=== PATIENT | female | born 1980 | race Hispanic/Latino ===

== ENCOUNTER 2019-08-16 09:43 | Day surgery (SDC) | payer OTHER ==
[~2019-08-16] VITALS: Ht 165.1 cm; Wt 146.1 kg
[~2019-08-16 09:43] MED LIST: SODIUM CHLORIDE 0.9% 1000ML 1,000 ML IV ONE
[2019-08-16 10:57] VITALS: BP 151/71
[2019-08-16] MEDS ORDERED: PROPOFOL 10 MG/ML 20ML VIAL IV ONE (11:22)
[2019-08-16] MEDS ORDERED: BUDE10.2 IH (11:37)
[2019-08-16] MEDS ORDERED: CHOL200026 PO (11:37)
[2019-08-16] MEDS ORDERED: DICY20TA11 PO (11:37)
[2019-08-16] MEDS ORDERED: NORG1TAB14 PO (11:37)
[2019-08-16] MEDS ORDERED: METF-444 PO (11:37)
[2019-08-16] MEDS ORDERED: IRBE300T19 PO (11:37)
[2019-08-16] MEDS ORDERED: CETI10TA57 PO (11:37)
[2019-08-16] MEDS ORDERED: AMLO10TA7 PO (11:37)
[2019-08-16] MEDS ORDERED: MONT10TA24 PO (11:37)
[2019-08-16 12:40] VITALS: BP 112/54
[2019-08-16 12:48] VITALS: BP 150/89
[2019-08-16 12:50] VITALS: BP 128/76
== END 2019-08-16 13:16 | disposition home or self-care (01) ==
LOC: ENDO 09:43 → DAH 09:43 → ENDO 13:16
PROVIDERS: ATTEND Internal Medicine Gastroenterology
DX: R93.5 Abnormal findings on diagnostic imaging of other abdominal regions, including retroperitoneum (principal); K29.00 Acute gastritis without bleeding; I10 Essential (primary) hypertension; K31.89 Other diseases of stomach and duodenum; E78.5 Hyperlipidemia, unspecified; J45.909 Unspecified asthma, uncomplicated; E11.9 Type 2 diabetes mellitus without complications; K21.0 Gastro-esophageal reflux disease with esophagitis; Z79.899 Other long term (current) drug therapy; Z79.84 Long term (current) use of oral hypoglycemic drugs; Z87.891 Personal history of nicotine dependence; Z82.49 Family history of ischemic heart disease and other diseases of the circulatory system
CPT/HCPCS: 43239; 81025; 82948; A4215; A4221; A4222; A4223; A4606; A4620; A4663; J2704; J7030